=== PATIENT | male | born 1965 | race American Indian/Alaskan Native ===

== ENCOUNTER 2018-11-16 16:47 | Emergency (ER) | payer OTHER ==
--- NOTE | 2018-11-16 18:54 | EDM.PDOC ---
Scribed by Cesilia Hernandez 11/16/18 2119 for Marybeth Larson NP <Marybeth Larson - Last Filed: 11/16/18 18:53> ED HPI GENERAL MEDICAL PROBLEM - General Chief Complaint: Lower Extremity Injury/Pain Stated Complaint: HURT KNEE Time Seen by Provider: 11/16/18 18:25 Source of Information: Reports: Patient, RN, RN Notes Reviewed History Limitations: Reports: No Limitations - History of Present Illness INITIAL COMMENTS - FREE TEXT/NARRATIVE: Patient presents to ER with complaint of red, swollen left knee. this began yesterday a.m. and worsening. Rates her pain 10/10 with movement. Denies injury. No artificial joint. He has had chills. No fever, nausea, vomiting or diarrhea. Onset Date: 11/15/18 Duration: Getting Worse Location: Reports: Lower Extremity, Left (knee) Quality: Reports: Ache Severity: Moderate Improves with: Reports: None Worsens with: Reports: None Associated Symptoms: Reports: No Other Symptoms Left Knee Pain Score (Numeric/FACES): 6 - Related Data Allergies Allergy/AdvReac Type Severity Reaction Status Date / Time Penicillins Allergy Cannot Verified 11/16/18 18:09 Remember Home Meds: Home Meds Tiotropium [Spiriva] 18 mcg INH BID 11/16/18 [History] Past Medical History HEENT History: Reports: None Cardiovascular History: Reports: None Respiratory History: Reports: COPD Gastrointestinal History: Reports: None Genitourinary History: Reports: None Musculoskeletal History: Reports: None Psychiatric History: Reports: None Endocrine/Metabolic History: Reports: None Hematologic History: Reports: None Immunologic History: Reports: None - Infectious Disease History Infectious Disease History: Reports: None - Past Surgical History Respiratory Surgical History: Reports: None Musculoskeletal Surgical History: Reports: Other (See Below) Other Musculoskeletal Surgeries/Procedures:: fx lt great toe surgically repaired Social & Family History - Family History HEENT: Reports: None Cardiac: Reports: None Respiratory: Reports: None GI: Reports: None - Tobacco Use Smoking Status *Q: Current Every Day Smoker Years of Tobacco use: 30 Packs/Tins Daily: 0.3 Used Tobacco, but Quit: No - Caffeine Use Caffeine Use: Reports: Coffee, Soda - Recreational Drug Use Recreational Drug Use: No Review of Systems - Review of Systems Review Of Systems: ROS reveals no pertinent complaints other than HPI. ED EXAM, GENERAL - Physical Exam Exam: See Below Exam Limited By: No Limitations General Appearance: Alert, WD/WN, No Apparent Distress Eye Exam: Bilateral Eye: EOMI, Normal Inspection, PERRL Ears: Normal External Exam, Normal Canal, Hearing Grossly Normal, Normal TMs Nose: Normal Inspection, Normal Mucosa, No Blood Throat/Mouth: Normal Inspection, Normal Lips, Normal Teeth, Normal Gums, Normal Oropharynx, Normal Voice, No Airway Compromise Head: Atraumatic, Normocephalic Neck: Normal Inspection, Supple, Non-Tender, Full Range of Motion Respiratory/Chest: Wheezing (upper lobes) Cardiovascular: Normal Peripheral Pulses, Regular Rate, Rhythm, No Edema, No Gallop, No JVD, No Murmur, No Rub GI/Abdominal: Normal Bowel Sounds, Soft, Non-Tender, No Organomegaly, No Distention, No Abnormal Bruit, No Mass (Male) Exam: Deferred Rectal (Males) Exam: Deferred Back Exam: Normal Inspection, Full Range of Motion, NT Extremities: Other (left knee swelling and erythema) Neurological: Alert, Oriented, CN II-XII Intact, Normal Cognition, Normal Gait, Normal Reflexes, No Motor/Sensory Deficits Psychiatric: Normal Affect Skin Exam: Warm, Dry, Intact, Normal Color, No Rash Lymphatic: No Adenopathy Course - Vital Signs Last Recorded V/S: Last Vital Signs Temp 98.4 F 11/16/18 21:19 Pulse 85 11/16/18 21:19 Resp 18 11/16/18 21:19 BP 139/89 11/16/18 21:19 Pulse Ox 98 11/16/18 21:19 - Orders/Labs/Meds Orders: Active Orders 24 hr Category Date Time Status Knee w Cont Lt [CT] Urgent Exams 11/16/18 19:28 Taken CULTURE BLOOD [BC] Stat Lab 11/16/18 18:43 Received CULTURE BLOOD [BC] Stat Lab 11/16/18 18:50 Results Vancomycin 1,250 mg Med 11/16/18 21:07 Active Sodium Chloride 0.9% [Normal Saline] 250 ml IV ONETIME Blood Culture x2 Reflex Set [OM.PC] Stat Oth 11/16/18 18:08 Ordered Medication Orders Vancomycin HCl 1,250 mg/ (Sodium Chloride) 250 mls @ 166.667 mls/hr IV ONETIME ONE Stop: 11/16/18 22:36 Last Admin: 11/16/18 21:22 Dose: 166.667 mls/hr Labs: Laboratory Tests 11/16/18 11/16/18 11/16/18 Range/Units 18:43 18:43 18:43 WBC 16.9 H (5.0-10.0) 10^3/uL RBC 4.22 L (4.6-6.2) 10^6/uL Hgb 14.2 (14.0-18.0) g/dL Hct 42.2 (40.0-54.0) % MCV 100.0 (80-100) fL MCH 33.6 (27.0-34.0) pg MCHC 33.6 (33.0-35.0) g/dL Plt Count 219 (150-450) 10^3/uL Neut % (Auto) 79.4 H (42.2-75.2) % Lymph % (Auto) 10.2 L (20.5-50.1) % Lynn % (Auto) 10.1 H (2-8) % Eos % (Auto) 0.2 L (1.0-3.0) % Baso % (Auto) 0.1 (0.0-1.0) % Sodium 132 L (135-145) mmol/L Potassium 3.7 (3.6-5.0) mmol/L Chloride 102 (101-111) mmol/L Carbon Dioxide 21.0 (21.0-31.0) mmol/L Anion Gap 12.7 BUN 12 (7-18) mg/dL Creatinine 0.8 (0.6-1.3) mg/dL Est Cr Clr Drug Dosing 117.21 mL/min Estimated GFR (MDRD) > 60 BUN/Creatinine Ratio 15.00 Glucose 91 (74-105) mg/dL Lactic Acid 1.3 (0.5-2.2) mmol/L Calcium 8.4 (8.4-10.2) mg/dl Total Bilirubin 0.6 (0.2-1.0) mg/dL AST 26 (10-42) IU/L ALT 33 (10-60) IU/L Alkaline Phosphatase 51 (42-121) IU/L Total Protein 6.5 L (6.7-8.2) g/dl Albumin 3.0 L (3.2-5.5) g/dl Globulin 3.5 Albumin/Globulin Ratio 0.86 Meds: Medications Generic Name Dose Route Start Last Admin Trade Name Ashli PRN Reason Stop Dose Admin Vancomycin HCl 1,250 mg/ 250 mls @ 166.667 mls/hr 11/16/18 21:07 11/16/18 21: 22 Sodium Chloride IV 11/16/18 22:36 166.667 mls/hr ONETIME ONE Administration Discontinued Medications Generic Name Dose Route Start Last Admin Trade Name Ashli PRN Reason Stop Dose Admin Diphenhydramine HCl 25 mg 11/16/18 21:07 11/16/18 21:15 Benadryl IVPUSH 11/16/18 21:08 25 mg ONETIME ONE Administration Fentanyl 25 mcg 11/16/18 21:07 11/16/18 21:13 Sublimaze IVPUSH 11/16/18 21:08 25 mcg ONETIME ONE Administration Sodium Chloride 1,000 mls @ 999 mls/hr 11/16/18 19:29 11/16/18 19:54 Normal Saline IV 11/16/18 20:29 999 mls/hr .BOLUS ONE Administration Iopamidol 75 ml 11/16/18 19:29 11/16/18 20:06 Isovue-300 (61%) IVPUSH 11/16/18 19:30 Not Given ONETIME ONE Iopamidol 100 ml 11/16/18 20:07 11/16/18 20:07 Isovue-300 (61%) IVPUSH 11/16/18 20:08 98 ml ONETIME ONE Administration Departure - Departure Disposition: DC/Tfer to [facility] 02 Clinical Impression: Pain and swelling of left knee Cellulitis Qualifiers: Site of cellulitis: extremity Site of cellulitis of extremity: lower extremity Laterality: left Qualified Code(s): L03.116 - Cellulitis of left lower limb - Discharge Information Referrals: PCP,None [Primary Care Provider] - Forms: ED Department Discharge - My Orders Last 24 Hours: My Active Orders 11/16/18 19:28 Knee w Cont Lt [CT] Urgent 11/16/18 21:07 Vancomycin 1,250 mg Sodium Chloride 0.9% [Normal Saline] 250 ml IV ONETIME - Assessment/Plan Last 24 Hours: My Active Orders 11/16/18 19:28 Knee w Cont Lt [CT] Urgent 11/16/18 21:07 Vancomycin 1,250 mg Sodium Chloride 0.9% [Normal Saline] 250 ml IV ONETIME <Herber Cheek Kiel - Last Filed: 11/16/18 21:35> Course - Radiology Interpretation Free Text/Narrative:: [facility] Final Radiology Report Call: [phone] assistance Online chat: [email or web address] Name: VICKY CASTORENA Age: 53Years M Date: 11/16/2018 SSN: -- : 1965 Study: XR KNEE COMPLETE 4 OR MORE VIEWS LEFT Requesting Physician: Marybeth Larson Images: 3 Addl Studies: Provided Clinical History: Contrast: Contrast Medium: Contrast Amount: Contrast Method: CONFIDENTIALITY STATEMENT This report is intended only for use by the referring physician, and only in accordance with law. If you received this in error, call [phone]. Page 1 of 1 EXAM: XR Left Knee EXAM DATE/TIME: 11/16/2018 6:13 PM CLINICAL HISTORY: 53 years old, male; Other: Red and swollen knee TECHNIQUE: Imaging protocol: XR Left knee. Views: 3 views. COMPARISON: No relevant prior studies available. FINDINGS: Bones/joints: No acute fracture. There may be a subcentimeter osteochondroma along the lateral femoral epicondyle Soft tissues: Moderate prepatellar edema IMPRESSION: No acute osseous process. Moderate prepatellar edema Thank you for allowing us to participate in the care of your patient. Dictated and Authenticated by: David Ojeda MD 11/16/2018 6:26 PM Central Time ([place] & [place]) [facility] Final Radiology Report Call: [phone] assistance Online chat: [email or web address] Name: VICKY CASTORENA Age: 53Years M Date: 11/16/2018 SSN: -- : 1965 Study: CT EXTREMITY LOWER W LEFT Requesting Physician: HERBER CHEEK Images: [phone] Addl Studies: Provided Clinical History: Contrast: With Contrast Medium: Iso 300 Contrast Amount: 98 mL Contrast Method: RAC 22g Page 1 of 2 EXAM: CT Left Lower Extremity With Contrast, Knee EXAM DATE/TIME: 11/16/2018 7:45 PM CLINICAL HISTORY: 53 years old, male; Other: Left knee pain, redness and swelling TECHNIQUE: Imaging protocol: CT of the Left lower extremity with intravenous contrast was performed. Exam focused on the knee. Radiation optimization: All CT scans at this facility use at least one of these dose optimization techniques: automated exposure control; mA and/or kV adjustment per patient size (includes targeted exams where dose is matched to clinical indication); or iterative reconstruction. Contrast material: ISO 300; Contrast volume: 98 ml; Contrast route: RAC 22G; COMPARISON: CR Knee Min 4V Lt 11/16/2018 6:13 PM FINDINGS: Bones/joints: Normal. No acute fracture or dislocation. Soft tissues: There is extensive prepatellar edema. No soft tissue gas. No organized fluid collection to suggest abscess IMPRESSION: Extensive prepatellar edema Thank you for allowing us to participate in the care of your patient. - Re-Assessments/Exams Free Text/Narrative Re-Assessment/Exam: 11/16/18 21:[address] Alexander recommends tx to [facility] accepting of patient. Tx via [facility]. Departure - Departure Time of Disposition: 21:31 Condition: Good I have read and agree with the documentation that has been completed regarding this visit. By signing this record, I attest that the documentation was completed in my physical presence and is an accurate record of the encounter.
[2018-11-16 19:17] LABS: ANION GAP 12.7; CHLORIDE,CL 102 mmol/L (101-111); SODIUM,NA 132 mmol/L (135-145)
[2018-11-16] MEDS ORDERED: Sodium Chloride 0.9% 1,000 ML IV ONE (19:29)
[2018-11-16] MEDS ORDERED: Iopamidol 612 MG/ML 75 ML Bottle IVPUSH ONE (19:29)
[2018-11-16] MEDS ORDERED: Iopamidol 612 MG/ML 100 ML Bottle IVPUSH ONE (20:07)
[2018-11-16] MEDS ORDERED: diphenhydrAMINE 50 MG/ML SDV IVPUSH ONE (21:07)
[2018-11-16] MEDS ORDERED: fentaNYL 100 MCG/2 ML SDV IVPUSH ONE (21:07)
[2018-11-16 21:20] VITALS: BP 139/89
[2018-11-16] MEDS ORDERED: Acetaminophen 325 MG Tab PO ONE (21:50)
== END 2018-11-16 21:57 ==
LOC: DL.ED 16:47
DX: L03.116 Cellulitis of left lower limb (principal); M25.462 Effusion, left knee; J44.9 Chronic obstructive pulmonary disease, unspecified; F17.210 Nicotine dependence, cigarettes, uncomplicated; Z88.0 Allergy status to penicillin; Z79.899 Other long term (current) drug therapy
CPT/HCPCS: 36415; 73562; 73701; 80053; 80305; 81001; 83605; 85025; 87040; 96361; 96365; 96375; 99283; A9270; J1200; J3010; J3370; J7030; J7050; Q9967

== ENCOUNTER 2023-08-26 15:18 | Emergency (ER) | payer MEDICAID ==
[2023-08-26] MEDS: Bacitracin Oint 1 GM U/D Packet TOP ONE (15:37)
[2023-08-26] MEDS: Lidocaine 1% 30 ML SDV INJECT ONE (15:37)
[2023-08-26 15:46] VITALS: BP 114/92; PULSE 108
[2023-08-26] MEDS: Diphtheria,Pertussis(Acell),Tetanus Vaccine 0.5 ML Syringe IM ONE (15:49)
== END 2023-08-26 15:54 | disposition home or self-care (01) ==
LOC: DL.ED 15:18
DX: S61.211A Laceration without foreign body of left index finger without damage to nail, initial encounter (principal); Z79.899 Other long term (current) drug therapy; Z88.0 Allergy status to penicillin; Z23 Encounter for immunization; W26.0XXA Contact with knife, initial encounter
CPT/HCPCS: 12001; 90471; 90715; 99282; A9270; J3490

== ENCOUNTER 2023-08-29 15:11 | Emergency (ER) | payer MEDICAID ==
[2023-08-29 16:22] LABS: BASOPHILS PERCENT AUTO 0.3 % (0.0-1.0); EOSINOPHILS PERCENT AUTO 2.4 % (1.0-3.0); HEMATOCRIT 40.7 % (40.0-54.0); HEMOGLOBIN 13.6 g/dL (14.0-18.0); LYMPHOCYTES PERCENT AUTO 32.5 % (20.5-50.1); MEAN CORPUSCULAR HEMOGLOBIN 33.1 pg (27.0-34.0); MEAN CORPUSCULAR HGB CONC 33.4 g/dL (33.0-35.0); MONOCYTES PERCENT AUTO 8.5 % (2-8); NEUTROPHILS PERCENT AUTO 56.3 % (42.2-75.2); PLATELET COUNT,PLT 155 10^3/uL (150-450); RED BLOOD CELL COUNT 4.11 10^6/uL (4.6-6.2); WHITE BLOOD CELL COUNT,WBC 9.5 10^3/uL (5.0-10.0)
[2023-08-29] MEDS: Sodium Chloride 0.9% 1,000 ML IV ONE (16:25)
[2023-08-29] MEDS: Sodium Chloride 0.9% 10 ML Syringe FLUSH PRN (16:37)
[2023-08-29] MEDS: Cefepime 2 GM Vial IVPUSH ONE (16:38)
[2023-08-29] MEDS: diphenhydrAMINE 50 MG/ML SDV IVPUSH ONE (16:38)
[2023-08-29 16:41] LABS: LACTIC ACID 1.3 mmol/L (0.4-2.0)
[2023-08-29] MEDS ORDERED: Bacitracin Oint 1 GM U/D Packet TOP ONE (16:54)
[2023-08-29 17:03] VITALS: PULSE 105
[2023-08-29] MEDS: Mupirocin Oint 22 GM Tube TOP ONE (17:20)
[2023-08-29] MEDS: Acetaminophen/HYDROcodone 325-10 MG Tab PO ONE (17:20)
[2023-08-29] MEDS: Take Home: Doxycycline 100 MG Cap, 4 Cap Pack PO ONE (17:25)
[2023-08-29] MEDS: Take Home: Clindamycin HCl 150 MG, 12 Cap Pack PO ONE (17:25)
[2023-08-29 18:26] VITALS: BP 129/99
== END 2023-08-29 18:24 | disposition home or self-care (01) ==
LOC: DL.ED 15:11
DX: L03.114 Cellulitis of left upper limb (principal); S61.211D Laceration without foreign body of left index finger without damage to nail, subsequent encounter; J44.9 Chronic obstructive pulmonary disease, unspecified; Z79.899 Other long term (current) drug therapy; Z88.0 Allergy status to penicillin; X58.XXXD Exposure to other specified factors, subsequent encounter
CPT/HCPCS: 36415; 83605; 85025; 86140; 87040; 87070; 96365; 96375; 99283; A9270; J0692; J1200; J3370; J7030; J7050; J3490

== ENCOUNTER 2024-11-16 09:52 | Day surgery (SDC) | payer SELFPAY ==
[~2024-11-16 09:52] MED LIST: Dexamethasone 4 MG/ML SDV ONE; Ondansetron 4 MG/2 ML SDV IVPUSH PRN
[2024-11-16] MEDS ORDERED: Sodium Chloride 0.9% 10 ML Syringe IV ONE (09:53)
[2024-11-16] MEDS ORDERED: Midazolam 1 MG/ML 2 ML SDV IV ONE (09:53)
[2024-11-16] MEDS ORDERED: Dexamethasone 4 MG/ML SDV IV ONE (09:53)
[2024-11-16] MEDS: Moxifloxacin 0.5% Ophth Soln 3 ML Bottle EYERT ONE (10:28)
[2024-11-16] MEDS: Povidone-Iodine 5% Sterile Ophth Soln 30 ML Bottle EYERT ONE ×2 (10:29→10:40)
[2024-11-16] MEDS: Timolol Maleate 0.5% Ophth Soln 5 ML Bottle EYERT ONE (10:30)
[2024-11-16] MEDS: Phenylephrine 10% Ophth Soln 5 ML Bot EYERT ONE (10:30)
[2024-11-16] MEDS: Cataract Ophth Solution EYERT ONE (10:32)
[2024-11-16] MEDS: Diclofenac Sodium 0.1% Ophth Soln 5 ML Bottle EYERT ONE ×2 (10:52→10:59)
[2024-11-16] MEDS: Apraclonidine 0.5% Ophth Soln 5 ML Bot EYERT ONE ×2 (10:52→10:59)
[2024-11-16] MEDS: Dexamethasone/Neomycin/Polymyxin B Ophth Oint 3.5 GM Tube EYERT ONE ×2 (10:52→10:59)
[2024-11-16 11:29] VITALS: BP 129/85; PULSE 83
== END 2024-11-16 11:29 | disposition home or self-care (01) ==
LOC: DL.SDS 09:52
PROVIDERS: ATTEND Ophthalmology
DX: H25.811 Combined forms of age-related cataract, right eye (principal); I10 Essential (primary) hypertension; E78.5 Hyperlipidemia, unspecified; J44.9 Chronic obstructive pulmonary disease, unspecified; F41.9 Anxiety disorder, unspecified; F32.A Depression, unspecified; F17.210 Nicotine dependence, cigarettes, uncomplicated; Z88.0 Allergy status to penicillin; Z79.899 Other long term (current) drug therapy
CPT/HCPCS: 66984; A9270; C1780; J1100; J2003; J2250; J3373; 00142; J3490